=== PATIENT | female | born 1990 | race Caucasian/White ===

== ENCOUNTER → 2025-07-11 | Outpatient (CLI) | payer BC, SELFPAY ==
--- NOTE | 2025-07-11 14:00 | XR_ITS ---
Examination: Pelvic ultrasound, transabdominal, complete Technique: Transabdominal ultrasound of the pelvis performed using grayscale imaging Date and time of exam: July 11, 2025, 1359 hours INDICATIONS: Irregular painful menses 8 months FINDINGS: Uterus 8.4 cm endometrial stripe 0.6 cm No uterine mass or intrauterine gestation Right ovary 2.8 cm arterial flow Left ovary 5.6 cm arterial flow, 3.4 x 4.6 x 4.0 cm cyst IMPRESSION: Left ovarian simple cyst 3.4 x 4.6 x 4.0 cm
== END | disposition home or self-care (01) ==
LOC: CDIM 13:36
PROVIDERS: PCP Student in an Organized Health Care Education/Training Program; Referring Provider Student in an Organized Health Care Education/Training Program; Visit Provider Student in an Organized Health Care Education/Training Program
DX: N83.292 Other ovarian cyst, left side (principal)
CPT/HCPCS: 76856